=== PATIENT | female | born 1985 | race Two or more races ===

== ENCOUNTER 2017-10-24 03:44 | Inpatient (IN) | payer OTHER ==
[~2017-10-24] VITALS: Ht 157.5 cm; Wt 69.4 kg
[2017-10-24] MEDS ORDERED: PRENATAL TABLE1 EAC3 PO (04:22)
[2017-10-24] MEDS ORDERED: IRON325 MG PO (04:23)
[2017-10-26] MEDS ORDERED: KAOPECTATE240 MG PO (09:10)
[2017-10-26] MEDS ORDERED: OBSTETRIX ONE1 EACH PO (09:11)
== END 2017-10-26 12:48 | DRG 775 ==
LOC: OB/GYN 03:44 → LDR 03:44 → OB/GYN 10:59
PROC: 0UQGXZZ Repair Vagina, External Approach (ICD-10-PCS; principal; 2017-10-24)
PROC: 10E0XZZ Delivery of Products of Conception, External Approach (ICD-10-PCS; 2017-10-24)
PROC: 4A1HXCZ Monitoring of Products of Conception, Cardiac Rate, External Approach (ICD-10-PCS; 2017-10-24)
PROC: 4A033R1 Measurement of Arterial Saturation, Peripheral, Percutaneous Approach (ICD-10-PCS; 2017-10-24)
DX: O71.4 Obstetric high vaginal laceration alone (principal); Z3A.39 39 weeks gestation of pregnancy; Z37.0 Single live birth